=== PATIENT | female | born 1985 | race Asian ===

== ENCOUNTER 2016-04-24 20:20 | Inpatient (IN) | payer SELFPAY ==
[~2016-04-24] VITALS: Ht 160 cm; Wt 64.9 kg
[2016-04-24] MEDS ORDERED: PROMETHAZINE 25 MG/ML VIAL IVP PRN (21:10)
[2016-04-24] MEDS ORDERED: METHYLERGONOVINE 0.2 MG/ML AMP IM PRN (21:10)
[2016-04-24] MEDS ORDERED: OXYTOCIN 20 UNITS/LR PREMIX 1,000 ML IV SCH (21:10)
[2016-04-24] MEDS ORDERED: NALBUPHINE HYDROCHLORIDE 10 MG/ML VIAL IVP PRN (21:10)
[2016-04-24] MEDS ORDERED: OXYTOCIN 10 UNITS/ML VIAL IM ONE (21:10)
[2016-04-24] MEDS ORDERED: LACTATED RINGERS 1,000 ML IV SCH (21:10)
[2016-04-24] MEDS ORDERED: ROPIVACAINE 0.2%/NS PREMIX 250 ML EPI ONE (23:04)
[2016-04-24] MEDS ORDERED: ROPIVACAINE 0.2%/NS PREMIX 250 ML EPI SCH (23:20)
[2016-04-24] MEDS ORDERED: FERROUS SULFAT325 MG PO (23:27)
[2016-04-25 00:15] VITALS: BP 114/66
[2016-04-25] MEDS ORDERED: INFLUENZA VIRUS VACCINE QUAD 0.5 ML SYR IMVAC SCH (00:15)
[2016-04-25] MEDS ORDERED: OXYTOCIN 20 UNITS/LR PREMIX 1,000 ML IV ONE (01:16)
[2016-04-25] MEDS ORDERED: OXYTOCIN 10 UNITS/ML VIAL ONE (01:17)
[2016-04-25] MEDS ORDERED: OXYTOCIN 10 UNITS/ML VIAL IM PRN (02:40)
[2016-04-25] MEDS ORDERED: oxyCODONE/APAP 5/325 MG 1 TAB TAB PO PRN (02:40)
[2016-04-25] MEDS ORDERED: MEASLES, MUMPS, AND RUBELLA 1 VIAL SQVAC PRN (02:40)
[2016-04-25] MEDS ORDERED: IBUPROFEN 800 MG TAB PO PRN (02:40)
[2016-04-25] MEDS ORDERED: BENZOCAINE/MENTHOL 20%-0.5% 60 GM CAN TP PRN (02:40)
[2016-04-25] MEDS ORDERED: TEMAZEPAM 15 MG CAP PO PRN (02:40)
[2016-04-25] MEDS ORDERED: METHYLERGONOVINE 0.2 MG/ML AMP IM PRN (02:40)
[2016-04-25] MEDS ORDERED: WITCH HAZEL 40 PAD PACKAGE TP PRN (02:40)
[2016-04-25] MEDS ORDERED: HYDROcodone/APAP 5/325 MG 1 TAB TAB PO PRN (02:40)
--- NOTE | 2016-04-25 08:48 | NUR ---
PATIENT HAS BEEN SCREENED AND CATEGORIZED LOW NUTRITION RISK. PATIENT WILL BE SEEN WITHIN 7 DAYS OF ADMISSION. 05/01/[address]
[2016-04-25] MEDS ORDERED: DOCUSATE SOD/SENNA 50/8.6 MG 1 TAB PO SCH (21:00)
== END 2016-04-26 15:10 | disposition home or self-care (01) | DRG 775 ==
LOC: MFCC 20:20
PROVIDERS: ADMIT Obstetrics & Gynecology; ATTEND Obstetrics & Gynecology
PROC: 0HQ9XZZ Repair Perineum Skin, External Approach (ICD-10-PCS; principal; 2016-04-24)
PROC: 10E0XZZ Delivery of Products of Conception, External Approach (ICD-10-PCS; 2016-04-24)
PROC: 3E0S3CZ (ICD-10-PCS; 2016-04-24)
DX: O70.0 First degree perineal laceration during delivery (principal); Z3A.37 37 weeks gestation of pregnancy; Z37.0 Single live birth; Z23 Encounter for immunization